=== PATIENT | female | born 1955 | race Caucasian/White ===

== ENCOUNTER → 2017-12-23 | Outpatient (CLI) | payer OTHER ==
--- NOTE | 2017-12-23 10:16 | KCIC ---
CHEST PA LATERAL dated 12/23/2017 12:00 AM. Comparison: None. Clinical Indication: Shortness of breath, COUGH FOR 2 WEEKS Findings: PA and lateral views of the chest were obtained. Heart and mediastinal contours within normal limits. Lungs are clear without focal consolidation. Vascular interstitium within normal limits. No pleural effusion or pneumothorax. Calcified bilateral hilar lymph nodes. Impression: No acute radiographic abnormality. Electronically signed by: Jarred Leigh MD (12/23/2017 10:13 AM) [id number]
== END | disposition home or self-care (01) ==
LOC: KCIC 09:50
PROVIDERS: ATTEND Nurse Practitioner Family
DX: J45.41 Moderate persistent asthma with (acute) exacerbation (principal); G44.83 Primary cough headache; R05 Cough; R06.02 Shortness of breath
CPT/HCPCS: 71046